=== PATIENT | male | born 1990 | race Two or more races ===

== ENCOUNTER 2025-01-05 09:49 | Emergency (ER) | payer SELFPAY ==
--- NOTE | ~2025-01-05 | XR_ITS ---
EXAMINATION: XR ABDOMEN KUB CLINICAL INDICATION: constipation COMPARISON: None available. TECHNIQUE: AP view of the abdomen. FINDINGS: There is gas throughout intestine. Stool within the hepatic colonic flexure. No intestinal dilatation. No air-fluid levels. No gross free air beneath the diaphragm. No metallic or radiopaque foreign body. Mild multilevel thoracolumbar spondylosis. XR/XR KUB IMPRESSION: No intestinal obstruction pattern. Electronically signed by: Kevin Diez MD 01/05/2025 10:39 AM [facility]
[2025-01-05 09:50] VITALS: BP 173/99; PULSE 103; RESP 20; TEMP 36.4; O2SAT 100; BMI 33.2
--- NOTE | 2025-01-05 09:55 | ECG_ITS ---
Test Reason : chest pain Blood Pressure : */* mmHG Vent. Rate : 94 BPM Atrial Rate : 94 BPM P-R Int : 158 ms QRS Dur : 82 ms QT Int : 374 ms P-R-T Axes : 52 45 48 degrees QTcB Int : 467 ms Normal sinus rhythm Normal ECG No previous ECGs available Referred By: Korina Rudolph Electronically Signed By: Matt Fernandez
--- NOTE | 2025-01-05 09:56 | ED.GENADULT ---
HPI - General Adult General Chief complaint: Abdominal Pain Stated complaint: Abd swelling Time Seen by Provider: 01/05/25 09:59 Source: patient and old records reviewed Mode of arrival: ambulatory Limitations: no limitations History of Present Illness ED Provider: AG BAUMANN narrative: 34-year-old male with past medical history of hypertension, frequent cocaine abuse no injecting, who presents with complaint of 1.5 hours feeling anxious in with a tense abdomen after using cocaine. He did get his cocaine from a new supplier. He was worried and felt off so he decided to come here. He feels anxious now. He has no fevers, no shortness of breath, no diarrhea, no nausea vomiting. Denies any SI or HI. He has had this before in the past with cocaine use but not to this degree MD complaint: anxiety, tense abdomen Onset (ago): hour(s) (1.5) Severity: moderate Pain Consistency: constant Relieving factors: none Exacerbating factors: none Associated symptoms: denies other symptoms Treatments prior to arrival: none Related Data Allergies Allergy/AdvReac Type Severity Reaction Status Date / Time No Known Allergies Allergy Verified 01/05/25 09:55 Review of Systems Review of Systems: Constitutional : No Fever, No Chills, No Fatigue ENT/Mouth : No sore throat, No Rhinorrhea Eyes: No Eye Pain, No Swelling, No Redness Cardiovascular : No Chest Pain, No SOB, No Dyspnea on Exertion Respiratory : No Cough, No Sputum Gastrointestinal : No Nausea, No Vomiting, No Diarrhea, No abdominal Pain Genitourinary : No Dysuria, No Urinary Frequency, No Hematuria, Musculoskeletal : No joint pain, No Myalgias, No Joint Swelling Skin : No Skin Lesions, No rash Neuro : No Weakness, No Numbness, No Dizziness, no Headache Psych : Positive Anxiety/Panic, No Depression All other systems reviewed and are negative PMFSH Past Medical History Attestation statement: The following information was validated with the patient. Source: old records reviewed Medical History (Updated 01/05/25 @ 11:25 by Emerald Gambino DO) Hypertension Cocaine use disorder Surgical History (Updated 01/05/25 @ 10:48 by Emerald Gambino DO) S/P appendectomy Social History Social History (Updated 01/05/25 @ 10:48 by Emerald Gambino DO) Patient Tobacco Use Status: Current everyday Tobacco user Smoked in Last 30 Days: Yes Substance Use Type: Crack/Cocaine Substance Use Type Other:: took 45 mins ago Substance Use Frequency: Recent Binge Advance Directives: No Advance Directives Information Provided: No Do you have a plan to hurt others: No Plan Physical Exam ED Vital Signs: Vital Signs - 24 hr 01/05/25 09:50 01/05/25 10:11 Temperature 97.6 F 98.3 F Pulse Rate 103 H 96 Respiratory Rate 20 16 Blood Pressure 173/99 H 140/90 H Pulse Oximetry 100 99 Oxygen Delivery Method Room Air Room Air BMI result Body Mass Index 33.2 Appearance: Alert. Oriented X3. No acute distress. Eyes: Pupils equal, round and reactive to light. ENT: Pharynx normal. Neck: Normal inspection. Neck supple. CVS: Normal heart rate and rhythm. Pulses normal. Respiratory: No respiratory distress. Breath sounds normal. Abdomen: Soft and and benign abdominal exam he reports he still feels like his abdomen is swollen though I appreciate no ascites or swelling on my exam Skin: Skin warm and dry. Normal skin color. Normal skin turgor. Extremities: No lower extremity edema. No calf ttp Neuro: Oriented X 3. No motor deficit. No sensory deficit. CN2-12 intact Course Course Course Narrative: This is a rapid medical exam performed by Erica Rudolph NP: Additional HPI, ROS, PE not included below will be deferred to primary provider. Patient is a 34y/o M presenting with complaint of abdominal bloating, unknown last BM. Admits to regular cocaine use, states he used 45mins prior to arrival. Bizarre/hostile behavior in triage. States he needs to urinate immediately. Plan: labs, UA Medications Administered Discontinued Medications Generic Name Dose Route Start Last Admin Trade Name Daniele PRN Reason Stop Dose Admin Lorazepam 2 mg 01/05/25 10:34 01/05/25 10:54 Lorazepam 1 Mg Tablet PO 01/05/25 10:35 2 mg ONCE ONE Administration Medical Decision Making Medical Decision Making [facility] Narrative: 34-year-old male with past medical history of hypertension, frequent cocaine abuse no injecting who is here with vague complaints of abdominal tightness, abdominal swelling, though on exam he is very benign exam. He has improving vital signs he has no chest pain or signs of STEMI on EKG. At this time I am going to obtain KUB, basic labs, start on oral Ativan for anxiety Differential Diagnosis Differential Diagnoses: The differential diagnosis associated with the presentation includes Anxiety, cocaine use disorder, constipation, rhabdo Admission/Observation Consideration of admission/observation: Escalation of care including admission/observation considered Labs are reassuring and patient feels better after oral Ativan, x-ray is reassuring as well at this time can be discharged home Lab Data MDM Lab Attestation statement: I reviewed the patient's lab results. 01/05/25 10:58 01/05/25 10:58 Labs: Lab Results 01/05/25 Range/Units 10:58 WBC 6.7 (4.8-10.8) X10*3/uL RBC 4.52 L (4.60-5.80) X10*6/uL Hgb 13.5 L (14.0-18.0) g/dl Hct 39.4 L (42.0-52.0) % MCV 87.2 (80.0-98.0) fL MCH 29.9 (27.0-33.0) pg MCHC 34.3 (31.0-36.0) g/dl RDW 13.2 (11.0-16.0) % Plt Count 267 (160-400) X10*3/uL MPV 9.0 L (9.4-12.4) fL Immature Gran % (Auto) 0.4 (0.0-0.4) % Neut % (Auto) 71.0 (45-73) % Lymph % (Auto) 19.1 L (20-40) % [place] % (Auto) 6.4 (2-11) % Eos % (Auto) 2.1 (0-4) % Baso % (Auto) 1.0 (0-2) % Lymph # (Auto) 1.3 (1.2-4.9) X10*3/uL [place] # (Auto) 0.4 (0.1-1.2) X10*3/uL Eos # (Auto) 0.1 (0.0-0.4) X10*3/uL Baso # (Auto) 0.1 (0.0-0.2) X10*3/uL Abs Immat Gran (auto) 0.03 (0.00-0.03) X10*3/uL Absolute Neuts (auto) 4.8 (2.0-8.3) x10*3/uL Absolute Nucleated RBC 0.000 (0.0-0.012) X10*3/uL Nucleated RBC % (auto) 0.0 (0.0-0.2) /100WBC PT 13.7 H (10.9-12.4) SEC INR 1.2 H (0.9-1.1) Urine Color Yellow Urine Appearance Clear Urine pH 6.5 (5.0-9.0) Ur Specific [place] >= 1.030 H (1.005-1.025) Urine Protein Trace (Neg-Trace) mg/dL Urine Glucose (UA) Negative (Negative) mg/dL Urine Ketones Negative (Negative) mg/dL Urine Blood Negative (Negative) Urine Nitrite Negative (Negative) Ur Leukocyte Esterase Negative (Negative) Ethyl Alcohol < 10 mg/dL Independent Interpretation I performed an independent interpretation of an: EKG and Plain X-Ray Interpretation: Rate: 94 Rhythm: Normal sinus [place]: Normal Normal P waves. Normal ROBBY. Normal QRS complex. ST T wave : No ST-elevation qTC: 467 prior studies: No acute ischemia The study has been interpreted contemporaneously by me. . Radiology Impression Discussion of test interpretation with radiology: I have reviewed the radiologist's reading. Discharge Plan Discharge Clinical Impression: Cocaine use disorder Patient Disposition: Home, Self-Care Instructions: Cocaine Use Disorder (ED) Additional Instructions: Your labs were reassuring, the x-ray of your abdomen was reassuring Return for any worsening symptoms, pain, fevers, difficulty breathing, or any other concernsOpiate use disorder You were seen in our Emergency Department today for treatment of cocaine use disorder. . You may experience feeling some withdrawal symptoms and this is normal. Please do not feel discouraged, it is a process. The nurse has reviewed with you where to follow up and what information to bring with you, to continue treatment. . If you decide you want to stop or cut down on how much you?re using, you can call or walk into our outpatient Addiction Treatment office: [facility] (M-F 9am-5p) [address], [address] [phone] You were also provided a list of several treatment providers in the area.? If you experience any worsening symptoms you cannot control please return to the ED or call 911. Please follow up at your next appointment. Things to look out for are fevers, chest pain, shortness of breath, severe pain, dizziness, fainting or any other concerns. Print Language: Uzbek
[2025-01-05 10:11] VITALS: BP 140/90; PULSE 96; RESP 16; TEMP 36.8; O2SAT 99
--- NOTE | 2025-01-05 10:14 | PC.NURSE ---
Pt roomed and changed and placed on full monitor. EKG SR no ectopy. Pt denies abd pain but states fullness and firmness and constipation. Pt states he is homeless.Pt states he has been using cocaine a lot recently Pt also c/o fast heart rate. HR 90's on monitor at this time. NAD no N/V/D or recent fever reported.
--- NOTE | 2025-01-05 10:32 | MHC.EDTECH ---
while doing ekg, asked for pt stated 89 my id has the wrong but my insurance is correct . Registration Milagros was notified, pt is short/aggressive in responses. I did recheck, educating the pt of importance on having the correct information on file. RN/ MD Aware
[2025-01-05 11:03] LABS: MANUAL DIFF FLAG NO
[2025-01-05 11:05] LABS: Hematocrit 39.4 % (42.0-52.0); Hemoglobin 13.5 g/dl (14.0-18.0); Imm Gran Abs Auto 0.03 X10*3/uL (0.00-0.03); Imm Gran Pct Auto 0.4 % (0.0-0.4); Lymphocytes Absolute Auto 1.3 X10*3/uL (1.2-4.9); Mean Corpuscular HGB Conc 34.3 g/dl (31.0-36.0); Mean Corpuscular Hemoglobin 29.9 pg (27.0-33.0); Mean Corpuscular Volume 87.2 fL (80.0-98.0); NRBC Abs Auto 0.000 X10*3/uL (0.0-0.012); NRBC Pct Auto 0.0 /100WBC (0.0-0.2); Platelet Count 267 X10*3/uL (160-400); Red Blood Count 4.52 X10*6/uL (4.60-5.80); White Blood Count 6.7 X10*3/uL (4.8-10.8)
[2025-01-05 11:06] LABS: Appearance Urine Clear; Glucose Urine UA Negative (Negative); PH 6.5 (5.0-9.0); Specific Gravity - Urine >= 1.030 (1.005-1.025)
[2025-01-05 11:11] LABS: INTERNATIONAL NORM RATIO 1.2 (0.9-1.1); Prothrombin Time 13.7 SEC (10.9-12.4)
[2025-01-05 11:24] LABS: Alanine Aminotransferase 28 U/L (0-40); Albumin Level 4.1 g/dL (3.5-5.0); Alkaline Phosphatase 62 U/L (39-117); Anion Gap 10 (12-20); Aspartate Amino Transferase 28 U/L (5-37); Blood Urea Nitrogen 10 mg/dL (9-16); Calcium 8.8 mg/dL (8.4-10.2); Carbon Dioxide 25 mmol/L (22-29); Chloride 108 mmol/L (96-108); Creatinine Clr Calc Pharmacy 119.5; Estimated Glomerular Filt Rate > 60; Lipase 41 U/L (8-78); Magnesium 2.0 mg/dL (1.6-2.6); Potassium 3.5 mmol/L (3.3-5.1); Sodium 139 mmol/L (135-145); Total Protein 6.8 g/dL (6.5-8.0)
[2025-01-05 11:33] LABS: Troponin-I High Sensitivity < 2.7 ng/L (<3.5-35.0)
--- OUTSIDE RECORDS SUMMARY | 2025-01-05 12:08 | XMS_ITS | Clinical Summary ---
Author Organization [facility] Address [address] [place] [address] Care Team Providers Care Amalgamator Name Role Phone Vickie Cavanaugh Primary Care Provider [phone] Allergies No known active allergies Medications * This document contains information received from the source organization and may not represent a complete record from that organization. atomoxetine (STRATTERA) 40 mg capsule Take 40 mg by mouth once a day. Active lamoTRIgine (LaMICtal) 25 mg tablet Take 50 mg by mouth once a day. Active omeprazole (PriLOSEC) 20 mg capsule Take 20 mg by mouth once a day. Active PARoxetine (PAXIL) 20 mg tablet Take 20 mg by mouth every morning. Active erythromycin (ILOTYCIN) 0.5% ophthalmic ointment Place a 1/2 inch ribbon of ointment into the lower eyelid 4 times a day. 3.5 g Active erythromycin (ILOTYCIN) 0.5% ophthalmic ointment Place a 1/2 inch ribbon of ointment into the lower eyelid 4 times a day. 3.5 g 5 025 Discontinued erythromycin (ILOTYCIN) 0.5% ophthalmic ointment Place a 1/2 inch ribbon of ointment into the lower eyelid 4 times a day. 3.5 g 5 025 Discontinued Encounters Date Type Department Care Team Description 12/18/2024 12:51 AM EDT - 12/18/2024 7:57 PM EDT Emergency [facility] Emergency Department [address] [place] [address] Erin Foreman MD McCormack, Neil, MD Polan, Laura E., MD Bradley, Evan S., MD Substance use disorder (Primary Dx); Acute conjunctivitis of both eyes, unspecified acute conjunctivitis type; Bipolar 1 disorder, depressed, moderate Discharge Disposition: [facility] (INPT Psych facility/unit) (65) from Last 3 Months Social History Tobacco Use Types Packs/Day Years Used Date Smoking Tobacco: Every Day Cigarettes Smokeless Tobacco: Never Tobacco Cessation:Ready to Q uit: Not Asked; Counseling Given: Not Answered Alcohol Use Standard Drinks/Week Comments Not Currently 0 (1 standard drink = 0.6 oz pur e alcohol) Sex and Gender Information Value Date Recorded Sex Assigned at Male 06/13/2023 12:11 PM EDT Legal Sex Male 12:04 PM EDT Gender Identity Not on file Sexual Orientation Not on file Last Filed Vital Signs Vital Sign Reading Time Taken Comments Blood Pressure 108/79 12/18/2024 6:17 PM EDT Pulse 71 12/18/2024 6:17 PM EDT Temperature 36.9 C (98.4 F) 12/18/2024 8:51 AM EDT Respiratory Rate 16 12/18/2024 6:17 PM EDT Oxygen Saturation 98% 12/18/2024 6:17 PM EDT Inhaled Oxygen Concentration - - Weight 99.8 kg (220 lb) 12/17/2024 9:33 PM EDT Height 167.6 cm (5' 6 ) 04/12/2024 3:53 PM EST Body Mass Index 35.51 04/12/2024 3:53 PM EST Plan of Treatment Health Maintenance Due Date Last Done Comments HIV Screening 1991 Hepatitis C Screening 1991 Hepatitis B Vaccines (2 of 3 - 3-dose series) 05/11/2010 04/13/2010 Varicella Vaccines (2 of 2 - 13+ 2-dose series) 05/11/2010 04/13/2010 Pneumococcal Vaccine: Pediat christie (0-5 Years) and At-Risk Patients (6-50 Years) (1 of 2 - PCV) 05/26/2010 DTaP,Tdap,and Td Vaccines (3 - Td or Tdap) 02/01/2021 02/01/2011, 04/14/2010 Alcohol/Substance Use Screening 03/04/2024 Depression Screening and Follow-Up 03/04/2024 Social Drivers of Health Shanique ual Screening 03/04/2024 COVID-19 Vaccine (1 - 2024-2 6 season) 2024 Influenza Vaccine (#1) 2024 5, 12/25/2012, 11/15/2011, Additional history exists Procedures * Due to [place] [employer] law, this organization might not be sharing negative HIV tests. Procedure Name Priority Date/Time Associated Diagnosis Comments WHITE TOP, URN Routine 12/18/2024 9:25 AM EDT UA/CULTURE REFLEX Routine 12/18/2024 9:2 5 AM EDT ETHANOL STAT 12/18/2024 9:25 AM EDT DRUGS OF ABUSE SCREEN, URINE (AMPH,JOEY,CARLOS,BUP, NIC,FENT,NAVDEEP,METH,O PS,OXY) STAT 12/18/2024 9:25 AM EDT URINALYSIS W/REFLEX TO MICROSCOPIC & CULTURE Routine 12/18/2024 9:25 AM EDT ECG 12-LEAD STAT 12/18/2024 5:19 AM EDT HEPATIC FUNCTION PANEL STAT Add-on 12/18/2024 5:07 AM EDT BASIC METABOLIC PANEL STAT 12/18/2024 5:07 AM EDT CBC AUTO DIFFERENTIAL STAT 12/18/2024 5:07 AM EDT HEART & VASCULAR - SCANNED 12/18/2024 HEART & VASCULAR - SCANNED 12/18/2024 from Last 3 Months Results * Due to [place] [employer] law, this organization might not be sharing negative HIV tests. * White Top, Urine (12/18/2024 9:25 AM EDT) Extra Tube Hold for add-ons. 12/18/2024 2:05 PM EDT [facility] Comment:Auto resulted. Urine Urine specimen collection, clean catch / Unknown Non-Blood Collection / Unknown 12/18/2024 9:25 AM EDT 12/18/2024 9:31 AM EDT us Joseluis Guerra MD LAB URINE ORDERABLES Final Res ult [facility] [address] [place] [phone], * (ABNORMAL) Drugs of Abuse Screen, Urine (12/18/2024 9:25 AM EDT) Amphetamine Screen, Urine Negative Negative 12/18/2024 11:56 AM EDT [facility] Comment: Detection limit of 1000 ng/mL of d-Methamphetamine. Drug results are to be used only for medical purposes. Unconfirmed screening results must not be used for non-medical purposes. Barbiturate Screen, Urine Negative Negative 12/18/2024 11:56 AM EDT [facility] Comment: Detection limit of 200 ng/mL of Secobarbital. Drug results are to be used only for medical purposes. Unconfirmed screening results must not be used for non-medical purposes. Benzodiazepine Screen, Urine Negative Negative 12/18/2024 11:56 AM EDT [facility] Comment: Detection limit of 200 ng/mL of Nordiazepam. Drug results are to be used only for medical purposes. Unconfirmed screening results must not be used for non-medical purposes. Buprenorphine Screen, Urine Negative Negative 12/18/2024 11:56 AM EDT [facility] Comment: Detection limit of 10 ng/mL of norbuprenorphine. Drug results are to be used only for medical purposes. Unconfirmed screening results must not be used for non-medical purposes. Cocaine Metabolite Screen, Urine Presumptive Positive(A) Negative 12/18/2024 11:56 AM EDT [facility] Comment: Detection limit of 300 ng/mL of Benzoylecgonine. Drug results are to be used only for medical purposes. Unconfirmed screening results must not be used for non-medical purposes. Marijuana Screen, Urine Presumptive Positive(A) Negative 12/18/2024 11:56 AM EDT [facility] Comment: Detection limit of 50 ng/mL of 28-Ihl-uvtpc-0-JND-1-carboxylic acid. Drug results are to be used only for medical purposes. Unconfirmed screening results must not be used for non-medical purposes. Methadone Metabolite Screen, Urine Negative Negative 12/18/2024 11:56 AM EDT [facility] Comment: Detection limit of 300 ng/mL of Methadone. Drug results are to be used only for medical purposes. Unconfirmed screening results must not be used for non-medical purposes. Oxycodone Screen, Urine Negative Negative 12/18/2024 11:56 AM EDT [facility] Comment: Detection limit of 100 ng/mL of Oxycodone. Drug results are to be used only for medical purposes. Unconfirmed screening results must not be used for non-medical purposes. Opiate Screen, Urine Negative Negative 12/18/2024 11:56 AM EDT [facility] Comment: Detection limit of 300 ng/mL of Morphine. Drug results are to be used only for medical purposes. Unconfirmed screening results must not be used for non-medical purposes. Fentanyl Screen, Urine Presumptive Positive(A) Negative 12/18/2024 11:56 AM EDT [facility] Comment: Detection limit of 5 ng/mL of norfentanyl. Drug results are to be used only for medical purposes. Unconfirmed screening results must not be used for non-medical purposes. Urine Urine specimen collection, clean catch / Unknown Non-Blood Collection / Unknown 12/18/2024 9:25 AM EDT 12/18/2024 9:31 AM EDT us Joseluis Guerra MD LAB URINE ORDERABLES Final Res ult [facility] [address] [place] [address], [place] * (ABNORMAL) Urinalysis W/Reflex to Microscopic & Culture (12/18/2024 9:25 AM EDT) Color, Urine Yellow Colorless, Light Yellow, Yellow, Dark Yellow 12/18/2024 10:10 AM EDT [facility] Clarity, Urine Slightly Cloudy(A) Clear 12/18/2024 10:10 AM T [facility] Specific [place], Urine >1.030(H) <1.030 12/18/2024 10:10 AM [facility] pH, Urine 6.0 4.6 - 8.0 12/18/2024 10:10 AM [facility] Protein, Urine 1+(A) Negative 12/18/2024 10:10 AM [facility] Glucose, Urine Normal Normal 12/18/2024 10:10 AM [facility] Ketones, Urine Trace(A) Negative 12/18/2024 10:10 AM [facility] Bilirubin, Urine Negative Negative 12/18/2024 10:10 AM EDT [facility] Blood, Urine Negative Negative 12/18/2024 10:10 AM [facility] Nitrite, Urine Negative Negative 12/18/2024 10:10 AM T [facility] Urobilinogen, Urine 1+(A) Normal 12/18/2024 10:10 AM EDT [facility] Leukocyte Esterase, Urine Negative Negative 12/18/2024 10:10 AM T [facility] WBC, Urine 4(H) 0 - 2 /HPF 12/18/2024 10:10 AM EDT [facility] RBC, Urine 1 0 - 2 /HPF 12/18/2024 10:10 AM T [facility] Hyaline Casts, Urine 0 0 - 2 /LPF 12/18/2024 10:10 AM EDT [facility] Squamous Epithelial Cells, Urine 1 /HPF 12/18/2024 10:10 AM EDT [facility] Bacteria, Urine None Seen None /HPF /HPF 12/18/2024 10:10 AM EDT [facility] Mucus, Urine Many /LPF 12/18/2024 10:10 AM EDT [facility] Urine Urine specimen collection, clean catch / Unknown Non-Blood Collection / Unknown 12/18/2024 9:25 AM EDT 12/18/2024 9:31 AM EDT Joseluis Guerra MD LAB URINE ORDERABLES Final Res ult Performing Organization Address [facility] Co de Phone Number [facility] [address] [place] [id number], [place] * Ethanol (12/18/2024 9:25 AM EDT) Ethanol <10 <10 mg/dL 12/18/2024 10:05 AM EDT [facility] Blood Structure of peripheral vein / Unknown Venipuncture / Unknown 12/18/2024 9:25 AM EDT 12/18/2024 9:30 AM EDT Joseluis Guerra MD LAB BLOOD ORDERABLES Final Res ult Performing Organization Address City/[facility]/ZIP Co de Phone Number [facility] [address] [place] [id number], [place] * ECG 12 lead (12/18/2024 5:19 AM EDT) Ventricular Rate EKG 77 BPM MUSE EKG Atrial Rate 77 BPM MUSE EKG NH Interval 164 ms MUSE EKG QRS Interval 84 ms MUSE EKG QT Interval 384 ms MUSE EKG QTC Interval 434 ms MUSE EKG P [place] 56 degrees MUSE EKG R [place] 69 degrees MUSE EKG T Wave [place] 66 degrees MUSE EKG 12/18/2024 5:19 AM EDT 12/18/2024 12:35 PM EDT Impressions MUSE EKG - 12/18/2024 12:35 PM EDT NORMAL SINUS RHYTHM NORMAL ECG WHEN COMPARED WITH ECG OF 03-Aug-2023 18:21, NO SIGNIFICANT CHANGE WAS FOUND Confirmed by Hasmukh Chandra ([id number]) on 12/18/2024 12:35:14 PM Narrative Procedure Note Hasmukh Chandra MD - 12/18/2024 IMPRESSION: NORMAL SINUS RHYTHM NORMAL ECG WHEN COMPARED WITH ECG OF 03-Aug-2023 18:21, NO SIGNIFICANT CHANGE WAS FOUND Confirmed by Hasmukh Chandra ([id number]) on 12/18/2024 12:35:14 PM us Erin Foreman MD ECG ORDERABLES Final Result MUSE EKG * CBC Auto Differential (12/18/2024 5:07 AM EDT) WBC 9.5 3.8 - 10.8 10*3/uL 12/18/2024 5:17 AM EDT [facility] RBC 5.12 4.20 - 5.80 10*6/uL 12/18/2024 5:17 AM EDT [facility] Hemoglobin 15.2 13.2 - 17.1 g/dL 12/18/2024 5:17 AM EDT [facility] Hematocrit 44.6 38.5 - 50.0 % 12/18/2024 5:17 AM EDT [facility] MCV 87.1 80.0 - 100.0 fL 12/18/2024 5:17 AM EDT [facility] MCH 29.7 27.0 - 33.0 pg 12/18/2024 5:17 AM EDT [facility] MCHC 34.1 32.0 - 36.0 g/dL 12/18/2024 5:17 AM EDT [facility] RDW 12.8 11.0 - 15.0 % 12/18/2024 5:17 AM EDT [facility] Platelets 303 140 - 400 10*3/uL 12/18/2024 5:17 AM [facility] MPV 9.3 7.5 - 12.5 fL 12/18/2024 5:17 AM EDT [facility] Neutrophil % 69.5 % 12/18/2024 5:[facility] Immature Grans % 0.3 0.0 - 0.9 % 12/18/2024 5:17 AM [facility] Lymphocyte % 17.4 % 12/18/2024 5:17 AM [facility] Monocyte % 8.5 % 12/18/2024 5:17 AM [facility] Eosinophil % 3.4 % 12/18/2024 5:17 AM [facility] Basophil % 0.9 % [facility]24 [facility] Neutrophil # 6.61 1.50 - 7.80 10*3/uL 12/18/2024 5:17 AM EDT [facility] Immature Grans # 0.03 <=0.03 10*3/uL 12/18/2024 5:17 AM EDT [facility] Lymphocyte # 1.70 0.85 - 3.90 10*3/uL 12/18/2024 5:17 AM EDT [facility] Monocyte # 0.80 0.20 - 0.95 10*3/uL 12/18/2024 5:17 AM [facility] Eosinophil # 0.30 0.02 - 0.50 10*3/uL 12/18/2024 5:17 AM EDT [facility] Basophil # 0.10 0.00 - 0.20 10*3/uL 12/18/2024 5:17 AM EDT [facility] nRBC % 0.0 /100 WBCs 12/18/2024 5:17 AM EDT [facility] nRBC # <0.01 <0.01 10*3/uL 12/18/2024 5:17 AM EDT [facility] Blood Structure of peripheral vein / Unknown Venipuncture / Unknown 12/18/2024 5:07 AM EDT 12/18/2024 5:11 AM EDT us Erin Foreman MD LAB BLOOD ORDERABLES Final Re sult [facility] [address] [place] [address], * (ABNORMAL) Hepatic Function Panel (12/18/2024 5:07 AM EDT) Total Protein 7.5 6.0 - 8.0 g/dL 12/18/2024 9:36 AM EDT [facility] Albumin 4.2 3.5 - 5.2 g/dL 12/18/2024 9:36 AM EDT [facility] Globulin, Total 3.3 2.1 - 4.2 g/dL 12/18/2024 9:36 AM EDT [facility] Bilirubin, Total 0.7 0.2 - 1.2 mg/dL 12/18/2024 9:36 AM EDT [facility] Bilirubin, Direct 0.2 <=0.4 mg/dL 12/18/2024 9:36 AM EDT [facility] Alkaline Phosphatase 75 35 - 129 U/L 12/18/2024 9:36 AM EDT [facility] AST 32 10 - 40 U/L 12/18/2024 9:36 AM EDT [facility] ALT 31 10 - 40 U/L 12/18/2024 9:36 AM EDT [facility] Bilirubin, Indirect 0.50 <=0.70 mg/dL 12/18/2024 9:36 AM EDT [facility] A/G Ratio 1.3(L) 1.5 - 3.0 12/18/2024 9:36 AM EDT [facility] Blood Structure of peripheral vein / Unknown Venipuncture / Unknown 12/18/2024 5:07 AM EDT 12/18/2024 5:11 AM EDT us Joseluis Guerra MD LAB BLOOD ORDERABLES Final Res ult [facility] [address] [place] [id number], * BMP - Basic Metabolic Panel (12/18/2024 5:07 AM EDT) NA 141 135 - 145 mmol/L 12/18/2024 5:45 AM EDT [facility] K 4.1 3.5 - 5.3 mmol/L 12/18/2024 5:45 AM EDT [facility] Cl 106 97 - 110 mmol/L 12/18/2024 5:45 AM EDT [facility] CO2 24 22 - 32 mmol/L 12/18/2024 5:45 AM EDT [facility] BUN 14 7 - 23 mg/dL 12/18/2024 5:45 AM EDT [facility] Creatinine 1.18 0.60 - 1.30 mg/dL 12/18/2024 5:45 AM EDT [facility] Glucose 99 65 - 99 mg/dL 12/18/2024 5:45 AM EDT [facility] Calcium 9.5 8.6 - 10.5 mg/dL 12/18/2024 5:45 AM EDT [facility] Anion Gap 11 5 - 15 12/18/2024 5:45 AM EDT [facility] eGFR 84 >=60 mL/min/1. 73m2 12/18/2024 5:45 AM EDT [facility] Comment:The estimated glomer ular filtration rate (eGFR) is calculated using a new formula developed by the NKF-ASN task force to eliminate race-based correction factors. The new formula uses serum/plasma creatinine, age, and gender to determine eGFR. A value below 60mls/min might indicate kidney disease and will be flagged. For additional information, see Roseann et al, Am J Kidney Dis. 2021;79(2):268- 288, A Unifying Approach for GFR estimation: Recommendations of the NKF-ASN Task Force on Reassessing the Inclusion of Race in Diagnosing Kidney Disease . Blood Structure of peripheral vein / Unknown Venipuncture / Unknown 12/18/2024 5:07 AM EDT 12/18/2024 5:11 AM EDT Erin Foreman MD LAB BLOOD ORDERABLES Final Re sult [facility] [address] [place] [address], * HEART & VASCULAR - SCANNED (12/18/2024) Only the most recent of2 resultswithin the time period is included. Anatomical Region Laterality Modality Other us Onbase Scan Augusto SCANNED PROCEDURES Final Resu lt from Last 3 Months Insurance [employer] [address] [place] [address] [employer] Care Teams Amalgamator Relationship Specialty Start Date End Date Vickie Cavanaugh [address] [place] [address] PCP - General 04/12/24
--- OUTSIDE RECORDS SUMMARY | 2025-01-05 12:08 | XMS_ITS | Clinical Summary ---
Author Organization [facility] Address [address] [place] [address] Care Team Providers Care Advisor Consultant Name Role Phone Vickie Cavanaugh MD Primary Care Provider [phone] Allergies No known active allergies Medications PARoxetine (PAXIL) 10 MG tablet Take 1 tablet (10 mg total) by mouth every morning. 7 tablet 06/26/2023 Active lamoTRIgine (LaMICtal) 100 MG tablet Take 1 tablet (100 mg total) by mouth daily. 7 tablet 06/26/2023 Active methocarbamol (ROBAXIN) 750 MG tablet Take 2 tablets (1,500 mg total) by mouth 3 (three) times a day. 60 tablet 08/21/2024 Active lidocaine (LIDODERM) 5 % patch Place 1 patch on the skin daily. Apply patch and leave on for 12 hours then remove. Patch may remain on skin for 12 hours per day. 30 patch 08/21/2024 Active naproxen (NAPROSYN) 500 MG tablet Take 1 tablet (500 mg total) by mouth 2 (two) times a day as needed for mild pain (pain). Take with food 30 tablet 08/21/2024 Active Encounters Date Type Department Care Team Description 10/20/2024 5:09 PM EDT - 10/20/2024 11:11 PM EDT Emergency [facility] [address] [place] [id number] Gopal Babb MD Suicidal ideation (Primary Dx) Discharge Disposition: Short Term-Acute Care Hospital 10/20/2024 Travel from Last 3 Months Social History Tobacco Use Types Packs/Day Years Used Date Smoking Tobacco: Every Day Cigarettes Smokeless Tobacco: Current Tobacco Cessation:Ready to Q uit: Not Asked; Counseling Given: Not Answered Alcohol Use Standard Drinks/Week Comments Not Currently 0 (1 standard drink = 0.6 oz pur e alcohol) Sex and Gender Information Value Date Recorded Sex Assigned at Male 06/26/2023 8:20 PM EDT Legal Sex Male 8:12 PM EDT Gender Identity Male 06/26/2023 8:20 PM EDT Sexual Orientation Heterosexual (straight) 06/25 8:30 PM EDT Last Filed Vital Signs Vital Sign Reading Time Taken Comments Blood Pressure 147/96 10/20/2024 10:43 PM EDT Pulse 60 10/20/2024 10:43 PM EDT Temperature 37.1 C (98.7 F) 10/20/2024 5:02 PM EDT Respiratory Rate 16 10/20/2024 10:43 PM EDT Oxygen Saturation 98% 10/20/2024 10:43 PM EDT Inhaled Oxygen Concentration - - Weight 95.3 kg (210 lb) 10/20/2024 5:02 PM EDT Height 167.6 cm (5' 6 ) 10/20/2024 5:02 PM EDT Body Mass Index 33.89 10/20/2024 5:02 PM EDT Plan of Treatment Health Maintenance Due Date Last Done Comments Hepatitis C Virus Screening 1990 HIV Screening 05/26/2004 DTaP/Tdap/Td Vaccines (1 - Tdap) 05/26/2010 Hepatitis B Vaccines (1 of 3 - 19+ 3-dose series) 05/03 Pneumococcal Vaccine: Pediat christie (0-5 Years) and At-Risk Patients (6 to 49 Years) (1 of 2 - PCV) 05/26/2010 Influenza Vaccine 10/02/2024 COVID-19 Vaccine (1 - season) 2024 HPV Vaccines (No Doses Required) Completed Insurance [facility] Care Teams Advisor Consultant Relationship Specialty Start Date End Date Vickie Cavanaugh MD [address] [place] [address] PCP - General Internal Medicine 06/26/23
[2025-01-05 12:14] VITALS: BP 133/75; PULSE 84; RESP 12; TEMP 36.6; O2SAT 95
[2025-01-05 14:35] VITALS: BP 115/78; PULSE 89; RESP 20; TEMP 36.6; O2SAT 95
== END 2025-01-05 14:38 | disposition home or self-care (01) ==
PROVIDERS: Registered Nurse Emergency; Emergency Provider Emergency Medicine
DX: F14.90 Cocaine use, unspecified, uncomplicated (principal); F41.9 Anxiety disorder, unspecified; I10 Essential (primary) hypertension
CPT/HCPCS: 36415; 74018; 80048; 80076; 80307; 81003; 82550; 83690; 83735; 84484; 85025; 85610; 93005; 99283; 99284

== ENCOUNTER → 2025-01-05 09:55 | Outpatient (BNV) | payer SELFPAY | PROVIDERS: Emergency Provider Emergency Medicine; Visit Provider Internal Medicine Cardiovascular Disease | DX: R07.9 Chest pain, unspecified (principal) | CPT/HCPCS: 93010 ==

== ENCOUNTER → 2025-01-05 10:01 | Outpatient (BNV) | payer OTHER, SELFPAY | PROVIDERS: Emergency Provider Emergency Medicine; Visit Provider Radiology Diagnostic Radiology | DX: K59.00 Constipation, unspecified (principal) | CPT/HCPCS: 74018 ==